=== PATIENT | female | born 1985 | race Caucasian/White ===

== ENCOUNTER 2019-04-13 14:57 | Emergency (ER) | payer SELFPAY ==
[~2019-04-13] VITALS: Ht 157.5 cm; Wt 71.8 kg
[2019-04-13 15:54] VITALS: BP 145/90; PULSE 71; TEMP 98.3
== END 2019-04-13 20:44 | disposition left against medical advice (07) ==
LOC: COL.ER 14:57
DX: M54.5 Low back pain (principal)

== ENCOUNTER 2022-07-13 09:03 | Outpatient (CLI) | payer BC ==
--- NOTE | 2022-07-11 08:55 | NUR ---
NO VOICE MAIL AND NO ANSWER
[~2022-07-13] VITALS: Ht 157.5 cm; Wt 78.4 kg
[~2022-07-13 09:03] MED LIST: D3-5050000 IU PO; NEURONTIN300 MG/CAP PO; SYNTHROID0.175 MG PO; ZOLOFT 100MG100 MG PO
[2022-07-13 09:47] VITALS: BP 149/90; PULSE 64; TEMP 97.6
[2022-07-13 11:21] VITALS: BP 127/90; PULSE 51
[2022-07-13 11:30] VITALS: BP 127/90; BP 142/97; PULSE 63; PULSE 64
[2022-07-13 11:45] VITALS: BP 138/86; PULSE 55
[2022-07-13 12:00] VITALS: BP 133/86; PULSE 59
[2022-07-13 12:15] VITALS: BP 142/94; PULSE 63
--- NOTE | 2022-07-13 12:26 | NUR ---
DC instructions reviewed with pt and , both express understanding. Pt remains free of complaint. Bandaid remains clean, dry and intact. Pt is steady on feet to ambulate to restroom. She and are escorted out with belongings.
[2022-07-13 12:30] LABS: GLUCOSE,CSF 54 mg/dL (40-70); TOTAL PROTEIN,CSF 30 mg/dL (15-45)
[2022-07-13 12:31] LABS: CSF APPEARANCE CLEAR; CSF COLOR COLORLESS; CSF RBC 19 /mm3 (0-0)
[2022-07-13 14:22] LABS: CSF MONONUCLEAR 100 % (70-100); CSF POLYMORPHONUCLEAR 0 % (0-6)
== END 2022-07-13 12:26 | disposition home or self-care (01) ==
LOC: COL.RAD 09:03
PROVIDERS: Psychiatry & Neurology Neurology
DX: R93.0 Abnormal findings on diagnostic imaging of skull and head, not elsewhere classified (principal)